=== PATIENT | female | born 1995 | race American Indian/Alaskan Native ===

== ENCOUNTER 2017-07-17 21:04 | Emergency (ER) | payer OTHER ==
[2017-07-17 22:18] VITALS: TEMP 97.5
--- NOTE | 2017-07-17 22:25 | ED PDOC ---
Arrival/HPI - General Historian: Patient - History of Present Illness Time/Duration: Other (since this morning) Quality: Aching Context: Home - General Time Seen by Provider: 07/17/17 22:21 - History of Present Illness Narrative History of Present Illness (Text): 07/17/17 22:21 This 21 yo female who denies pmh, presents to this ED c/o left sided headaches since this morning. Patient denies fever, sob, cp, abdominal pain, urinary symptoms, vaginal discharge, recent travel, sick contact, or abnormal gait. ( Cynthia Greenberg) Past Medical History - Provider Review Nursing Documentation Reviewed: Yes Family/Social History - Physician Review Nursing Documentation Reviewed: Yes Family/Social History: Other (non-contributory) Allergies/Home Meds Allergies/Adverse Reactions: Allergies No Known Allergies Allergy (Verified 07/17/17 22:40) Review of Systems - Review of Systems Constitutional: Normal. absent: Fatigue, Weight Change, Fevers Eyes: Normal ENT: Sore Throat, Other (left ear pain) Respiratory: Normal. absent: SOB, Cough Cardiovascular: Normal Gastrointestinal: Normal. absent: Abdominal Pain, Nausea, Vomiting Genitourinary Female: Normal. absent: Dysuria, Frequency, Hematuria, Vaginal Bleeding, Vaginal Discharge Musculoskeletal: Normal. absent: Arthralgias, Back Pain, Neck Pain Skin: Normal. absent: Rash Neurological: Normal, Headache Endocrine: Normal Hemo/Lymphatic: Normal Psychiatric: Normal Physical Exam Temperature: Afebrile Blood Pressure: Normal Pulse: Regular Respiratory Rate: Normal Appearance: Positive for: Well-Appearing, Non-Toxic, Comfortable Pain Distress: None Mental Status: Positive for: Alert and Oriented X 3 - Systems Exam Head: Present: Atraumatic, Normocephalic Pupils: Present: PERRL Extroacular Muscles: Present: EOMI Conjunctiva: Present: Normal Ears: Present: Normal, NORMAL TM, Normal Canal. No: Erythema, TM Bulging, Fluid , TM Perf Mouth: Present: Moist Mucous Membranes, Normal Lips, Normal Tounge, Normal Teeth. No: Drooling Pharnyx: Present: Normal. No: ERYTHEMA, EXUDATE, TONSILS ENLARGED Nose (External): Present: Atraumatic Nose (Internal): Present: Normal Inspection Neck: Present: Normal Range of Motion Respiratory/Chest: Present: Clear to Auscultation, Good Air Exchange. No: Respiratory Distress, Accessory Muscle Use Cardiovascular: Present: Regular Rate and Rhythm, Normal S1, S2. No: Murmurs Abdomen: Present: Normal Bowel Sounds. No: Tenderness, Distention, Peritoneal Signs Back: Present: Normal Inspection. No: CVA Tenderness, Midline Tenderness, Paraspinal Tenderness, Pain with Leg Raise Upper Extremity: Present: Normal Inspection, Normal ROM, NORMAL PULSES, Neurovascularly Intact, Capillary Refill < 2s. No: Cyanosis, Edema Lower Extremity: Present: Normal Inspection, NORMAL PULSES, Normal ROM, Neurovascularly Intact, Capillary Refill < 2 s. No: Edema, CALF TENDERNESS, Temperature Abnormalties Neurological: Present: GCS=15, CN II-XII Intact, Speech Normal, Motor Func Grossly Intact, Normal Sensory Function, Normal Cerebellar Funct, Gait Normal Skin: Present: Warm, Dry, Normal Color. No: Rashes Psychiatric: Present: Alert, Oriented x 3, Normal Insight, Normal Concentration Medical Decision Making Re-evaluation Time: 00:19 Reassessment Condition: Re-examined, Improved - Lab Interpretations I have reviewed the lab results: Yes Interpretation: Abnormal lab values (acute cystitis) ED Course and Treatment: 07/18/17 00:19 Re-evaluation. Patient feels better. Discussed results and plan with patient who expresses understanding. All questions answered and there is agreement with the plan to discharge home with instructions. Patient stable for discharge. Return if symptoms persist or worsen. Patient stated headache has improved. I reviewed UA result with patient which demonstrate subtle UTI. Patient agrees with plan to start ABX and to f/u pmd in 1-2 days. She understood urine culture will be available to review in 3-5 days. She will f/u this test with her pmd. Patient has a normal gait. normal speech. Patient appears well on her normal state of life (Greenberg,Nahim P) - Lab Interpretations Lab Results: Lab Results 07/17/17 22:50: Urine Color Yellow, Urine Appearance Sl cloudy, Urine pH 6.5, Ur Specific [place] 1.025, Urine Protein 30 H, Urine Glucose (UA) Negative, Urine Ketones Negative, Urine Blood Negative, Urine Nitrate Negative, Urine Bilirubin Negative, Urine Urobilinogen 1.0 H, Ur Leukocyte Esterase Moderate H, Urine RBC 0 - 2, Urine WBC 5 - 10, Ur Epithelial Cells 0 - 2, Urine Bacteria Occ , Urine HCG, Qual Negative - Medication Orders Current Medication Orders: Discontinued Medications Cephalexin Monohydrate (Keflex) 500 mg PO STAT STA PRN Reason: Protocol Stop: 07/18/17 00:17 Last Admin: 07/18/17 01:05 Dose: 500 mg Diphenhydramine HCl (Benadryl) 50 mg IVP STAT STA Stop: 07/17/17 22:42 Last Admin: 07/17/17 22:54 Dose: 50 mg Sodium Chloride (Sodium Chloride 0.9%) 1,000 mls @ 999 mls/hr IV .Q1H1M STA Stop: 07/17/17 23:40 Last Admin: 07/17/17 22:54 Dose: 999 mls/hr Ketorolac Tromethamine (Toradol) 30 mg IVP STAT STA Stop: 07/17/17 22:42 Last Admin: 07/17/17 22:54 Dose: 30 mg Metoclopramide HCl (Reglan) 10 mg IVP STAT STA Stop: 07/17/17 22:41 Last Admin: 07/17/17 22:54 Dose: 10 mg Disposition/Present on Arrival - Present on Arrival Any Indicators Present on Arrival: No History of DVT/PE: No History of Uncontrolled Diabetes: No Urinary Catheter: No History of Decub. Ulcer: No - Disposition Have Diagnosis and Disposition been Completed?: Yes Disposition Time: 00:22 Patient Plan: Discharge - Disposition Diagnosis: Headache, Acute cystitis Disposition: HOME/ ROUTINE Condition: GOOD Discharge Instructions (ExitCare): Acute Headache (ED) Additional Instructions: Call private doctor for follow up visit in 1-2 days. Take medication as instructed for headache as needed with food. Review urine culture report with your doctor in 3-5 days. return to emergency if symptoms worsen. Drink enough fluids, and rest. Prescriptions: Cephalexin [cephalexin] 500 mg PO BID #14 cap Metoclopramide HCl [Reglan] 10 mg PO BID PRN #6 tablet PRN Reason: Headache Naproxen 500 mg PO BID PRN #10 tab PRN Reason: Headache Referrals: Vickie Jerome MD [Primary Care Provider] - Follow up with primary Forms: WORK NOTE
[2017-07-17] MEDS ORDERED: Sodium Chloride 0.9% 1,000 ML IV STA (22:40)
[2017-07-17] MEDS ORDERED: DiphenhydrAMINE 50 mg/ml Inj IVP STA (22:41)
[2017-07-17 23:33] LABS: PH,URINE 6.5 (4.7-8.0); URINE BILIRUBIN NEGATIVE (NEGATIVE); URINE BLOOD NEGATIVE (NEGATIVE); URINE GLUCOSE (UA) NEGATIVE (NEGATIVE); URINE KETONE NEGATIVE (NEGATIVE); URINE LEUKOCYTE ESTERASE MODERATE Leu/uL (NEGATIVE); URINE PROTEIN 30 mg/dL (<30 mg/dL)
[2017-07-17 23:35] LABS: URINE COLOR YELLOW (YELLOW)
[2017-07-17 23:36] LABS: URINE APPEARANCE SL CLOUDY (CLEAR)
[2017-07-17 23:50] LABS: URINE EPITHELIAL CELLS 0 - 2 /hpf (0-5); URINE RBC 0 - 2 /hpf (0-2)
[2017-07-17 23:51] LABS: URINE BACTERIA OCC (NEG)
[2017-07-18 01:06] VITALS: BP 119/69; PULSE 69; RESP 17; O2SAT 100
== END 2017-07-18 01:07 | disposition home or self-care (01) ==
LOC: ED 21:04
DX: N30.00 Acute cystitis without hematuria (principal); R51 Headache
CPT/HCPCS: 81001; 84703; 96374; 96375; 99285; J1200; J1885; J2765; J7040

== ENCOUNTER 2017-08-10 23:40 | Emergency (ER) | payer OTHER ==
[2017-08-10 23:56] VITALS: BP 116/65; PULSE 69; RESP 18; TEMP 98.7
--- NOTE | 2017-08-11 00:41 | ED PDOC ---
Arrival/HPI <Chas Chua - Last Filed: 08/11/17 00:57> - General Historian: Patient - History of Present Illness Time/Duration: Other (see hpi) Quality: Aching Context: Home <Cynthia Greenberg - Last Filed: 08/11/17 01:16> - General Chief Complaint: Trauma Time Seen by Provider: 08/11/17 00:37 - History of Present Illness Narrative History of Present Illness (Text): 08/11/17 00:38 This 22 yo female who denies pmh, presents to this ED c/o left 5th finger pain x 9 hours ago. patient stated she became angry, punching dashboard of her car , causing finger pain. patient is left hand dominant. Denies other complains or pain. Fingers have FROM. (Cynthia Greenberg) Past Medical History - Provider Review Nursing Documentation Reviewed: Yes - Infectious Disease Hx of Infectious Diseases: None - Psychiatric Hx Substance Use: Yes (Marijuana) - Anesthesia Hx Anesthesia: No <Cynthia Greenberg - Last Filed: 08/11/17 01:16> Family/Social History - Physician Review Nursing Documentation Reviewed: Yes Family/Social History: Other (non-contributory) Smoking Status: Light Smoker < 10 Cigarettes Daily Hx Alcohol Use: Yes Hx Substance Use: Yes (Marijuana) <Cynthia Greenberg - Last Filed: 08/11/17 01:16> Allergies/Home Meds <Chas Chua - Last Filed: 08/11/17 00:57> <Cynthia Greenberg - Last Filed: 08/11/17 01:16> Allergies/Adverse Reactions: Allergies No Known Allergies Allergy (Verified 07/17/17 22:40) Review of Systems - Review of Systems Constitutional: Normal. absent: Fatigue, Weight Change, Fevers Eyes: Normal ENT: Normal Respiratory: Normal. absent: SOB, Cough Cardiovascular: Normal. absent: Chest Pain Gastrointestinal: Normal. absent: Abdominal Pain, Nausea, Vomiting Genitourinary Female: Normal Musculoskeletal: Other (see hpi) Skin: Normal Neurological: Normal Endocrine: Normal Hemo/Lymphatic: Normal Psychiatric: Normal <Cynthia Greenberg - Last Filed: 08/11/17 01:16> Physical Exam Temperature: Afebrile Blood Pressure: Normal Pulse: Regular Respiratory Rate: Normal Appearance: Positive for: Well-Appearing, Non-Toxic, Comfortable Pain Distress: None Mental Status: Positive for: Alert and Oriented X 3 - Systems Exam Head: Present: Atraumatic, Normocephalic Pupils: Present: PERRL Extroacular Muscles: Present: EOMI Conjunctiva: Present: Normal Mouth: Present: Moist Mucous Membranes Neck: Present: Normal Range of Motion Respiratory/Chest: Present: Clear to Auscultation, Good Air Exchange. No: Respiratory Distress, Accessory Muscle Use, Wheezes Cardiovascular: Present: Regular Rate and Rhythm, Normal S1, S2. No: Murmurs Upper Extremity: Present: Normal Inspection, Normal ROM, NORMAL PULSES, Tenderness (Mild tenderness near 5th MPJ, no erythema, no deformity), Neurovascularly Intact, Capillary Refill < 2s. No: Cyanosis, Edema Lower Extremity: Present: Normal Inspection, NORMAL PULSES, Normal ROM, Neurovascularly Intact, Capillary Refill < 2 s. No: Edema, CALF TENDERNESS Neurological: Present: GCS=15, CN II-XII Intact, Speech Normal, Motor Func Grossly Intact, Normal Sensory Function, Normal Cerebellar Funct, Gait Normal, Memory Normal Skin: Present: Warm, Dry, Normal Color. No: Rashes Psychiatric: Present: Alert, Oriented x 3 <Cynthia Greenberg - Last Filed: 08/11/17 01:16> Vital Signs Temp Pulse Resp BP Pulse Ox 08/10/17 23:54 98.7 F 69 18 116/65 100 Medical Decision Making <Chas Chua - Last Filed: 08/11/17 00:57> Re-evaluation Time: 01:13 Reassessment Condition: Re-examined, Improved <Cynthia Greenberg - Last Filed: 08/11/17 01:16> ED Course and Treatment: 08/11/17 01:13 Re-evaluation. Patient feels better. Discussed results and plan with patient who expresses understanding. All questions answered and there is agreement with the plan to discharge home with instructions. Patient stable for discharge. Return if symptoms persist or worsen I told patient official report from x-rays will be available tomorrow, and she will get a phone call if x-rays report is different from today's (Cynthia Greenberg) - RAD Interpretation Narrative RAD Interpretations (Text): 08/11/17 01:13 Finger x-rays: no fx or sublux. (Cynthia Greenberg) Radiology Orders: 08/11/17 00:37 HAND LEFT 5TH DIGIT (FINGER) [RAD] Stat - Medication Orders Current Medication Orders: Discontinued Medications Acetaminophen (Tylenol 325mg Tab) 650 mg PO STAT STA Stop: 08/11/17 00:38 Last Admin: 08/11/17 01:06 Dose: 650 mg MAR Pain/Vitals Document 08/11/17 01:06 [email or web address] (Rec: 08/11/17 01:07 [email or web address] [facility] [id number] Pain Reassessment Is This A Pain ReAssessment? No Sleep Is patient sleeping during reassessment? 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 <Chas Chua - Last Filed: 08/11/17 00:57> Disposition/Present on Arrival <Chas Chua - Last Filed: 08/11/17 00:57> - Present on Arrival Any Indicators Present on Arrival: No History of DVT/PE: No History of Uncontrolled Diabetes: No Urinary Catheter: No History of Decub. Ulcer: No History Surgical Site Infection Following: None - Disposition Have Diagnosis and Disposition been Completed?: Yes Disposition Time: 01:14 Patient Plan: Discharge <Cynthia Greenberg - Last Filed: 08/11/17 01:16> - Disposition Diagnosis: Finger contusion Disposition: HOME/ ROUTINE Condition: GOOD Discharge Instructions (ExitCare): Rose Mary Elizondo (ED) Additional Instructions: Call private doctor for follow up visit in 1-2 days. You may want to get a finger splint from your local pharmacy and wear it for a week. Take medication as instructed. Return to emergency if symptoms worsen. Prescriptions: Ibuprofen [Motrin] 600 mg PO Q8 PRN #20 tab PRN Reason: Pain, Severe (8-10) Referrals: [facility] [Outside] - Follow up with primary [facility] [Outside] - Follow up with primary Forms: [employer] (Niuean)
[2017-08-11 01:20] VITALS: O2SAT 99
--- NOTE | 2017-08-11 11:50 | RAD ---
PROCEDURE: Left small finger radiographs. HISTORY: pain COMPARISON: None. TECHNIQUE: AP radiograph of the left hand, as well as spot oblique and lateral images of left small finger were obtained. FINDINGS: LEFT SMALL FINGER: Left small finger normal, without fracture of focal lesion. Remainder of the left hand (as seen on the AP view) is grossly unremarkable. JOINTS: Normal. SOFT TISSUES: Normal. OTHER FINDINGS: None. IMPRESSION: Normal left small finger radiographs.
== END 2017-08-11 01:20 | disposition home or self-care (01) ==
LOC: ED 23:40
DX: S60.052A Contusion of left little finger without damage to nail, initial encounter (principal); W22.8XXA Striking against or struck by other objects, initial encounter; Y92.810 Car as the place of occurrence of the external cause

== ENCOUNTER 2018-03-20 13:38 | Emergency (ER) | payer OTHER ==
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
[2018-03-20 15:15] VITALS: RESP 18
[2018-03-20 15:28] VITALS: BP 120/60; PULSE 78; TEMP 98; O2SAT 99
== END 2018-03-20 15:25 | disposition home or self-care (01) ==
LOC: ED 13:38
DX: M25.511 Pain in right shoulder (principal); V43.62XA Car passenger injured in collision with other type car in traffic accident, initial encounter; Y92.410 Unspecified street and highway as the place of occurrence of the external cause

== ENCOUNTER 2018-08-31 16:06 | Emergency (ER) | payer OTHER ==
--- NOTE | 2018-08-31 16:29 | ED PDOC ---
Arrival/HPI <Julio Dean - Last Filed: 08/31/18 16:58> - General Historian: Patient - History of Present Illness Narrative History of Present Illness (Text): 08/31/18 16:26 23 y/o female with no significant PMH presents to ED c/o gradual onset of right thoracic back pain x 2 days. Paraspinal muscles are tender and pain is achey and worse with movement without radiation. 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 She has not taken any medication for pain. Denies fall, fever, chills, cough, SOB, chest pain, palpitations, syncope, calf swelling, calf pain, rash, abdominal pain, N/V, diarrhea. <Aleshia Cowart - Last Filed: 08/31/18 17:18> - General Chief Complaint: Back Pain Time Seen by Provider: 08/31/18 16:25 Past Medical History - Provider Review Nursing Documentation Reviewed: Yes - Infectious Disease Hx of Infectious Diseases: None - Psychiatric Hx Substance Use: Yes (Marijuana) - Anesthesia Hx Anesthesia: No <Aleshia Cowart - Last Filed: 08/31/18 17:18> Family/Social History - Physician Review Nursing Documentation Reviewed: Yes Family/Social History: Unknown Family HX Smoking Status: Light Smoker < 10 Cigarettes Daily Hx Alcohol Use: Yes Frequency of alcohol use: Socially Hx Substance Use: Yes (Marijuana) <Aleshia Cowart - Last Filed: 08/31/18 17:18> Allergies/Home Meds <Julio Dean - Last Filed: 08/31/18 16:58> <Aleshia Cowart - Last Filed: 08/31/18 17:18> Allergies/Adverse Reactions: Allergies No Known Allergies Allergy (Verified 08/31/18 16:16) Review of Systems - Physician Review All systems were reviewed & negative as marked: Yes - Review of Systems Constitutional: Normal. absent: Fevers Eyes: Normal ENT: Normal Respiratory: Normal. absent: SOB, Cough, Sputum, Wheezing Cardiovascular: Normal. absent: Chest Pain, Palpitations, Calf Pain, Syncope Gastrointestinal: Normal. absent: Abdominal Pain, Stool Changes, Constipation, Diarrhea, Nausea, Vomiting, Anorexia Genitourinary Female: Normal Musculoskeletal: Back Pain (right thoracic). absent: Neck Pain Skin: Normal. absent: Rash, Pruritis, Skin Lesions, Cellulitis Neurological: Normal. absent: Headache, Dizziness, Gait Changes Hemo/Lymphatic: Normal. absent: Adenopathy <Aleshia Cowart - Last Filed: 08/31/18 17:18> Physical Exam Vital Signs Temp Pulse Resp BP Pulse Ox 08/31/18 16:14 98.5 F 66 19 126/91 H 100 <TolericoJulio - Last Filed: 08/31/18 16:58> Vital Signs Reviewed: Yes Vital Signs Temp Pulse Resp BP Pulse Ox 08/31/18 16:14 98.5 F 66 19 126/91 H 100 Temperature: Afebrile Blood Pressure: Normal Pulse: Regular Respiratory Rate: Normal Appearance: Positive for: Well-Appearing, Non-Toxic, Comfortable Pain Distress: None Mental Status: Positive for: Alert and Oriented X 3 - Systems Exam Head: Present: Atraumatic, Normocephalic Pupils: Present: PERRL Extroacular Muscles: Present: EOMI Conjunctiva: Present: Normal Mouth: Present: Moist Mucous Membranes Neck: Present: Normal Range of Motion Respiratory/Chest: Present: Clear to Auscultation, Good Air Exchange. No: Respiratory Distress, Accessory Muscle Use Cardiovascular: Present: Regular Rate and Rhythm, Normal S1, S2. No: Murmurs Abdomen: No: Tenderness, Distention, Peritoneal Signs Back: Present: Normal Inspection, Paraspinal Tenderness (right thoracic), Other (decreased ROM secondary to pain. right thoracic paraspinal muscle spasm.). No: Midline Tenderness Upper Extremity: Present: Normal Inspection. No: Cyanosis, Edema Lower Extremity: Present: Normal Inspection. No: Edema Neurological: Present: GCS=15, CN II-XII Intact, Speech Normal Skin: Present: Warm, Dry, Normal Color. No: Rashes Psychiatric: Present: Alert, Oriented x 3, Normal Insight, Normal Concentration <Aleshia Cowart - Last Filed: 08/31/18 17:18> Medical Decision Making - Medication Orders Current Medication Orders: Discontinued Medications Cyclobenzaprine HCl (Flexeril) 10 mg PO STAT STA Stop: 08/31/18 16:26 Last Admin: 08/31/18 16:39 Dose: 10 mg Ketorolac Tromethamine (Toradol) 60 mg IM STAT STA Stop: 08/31/18 16:27 Last Admin: 08/31/18 16:39 Dose: 60 mg MAR Pain Assessment Document 08/31/18 16:39 GMI (Rec: 08/31/18 16:45 GMI [id number]) Pain Reassessment Is this a pain reassessment? Yes Sleep Is patient sleeping during reassessment? No Presence of Pain Presence of Pain Yes Pain Scale Used Protocol: PSCALES Pain Scale Used Numeric Location Left, Right or Bilateral Right Pain Location Body Site Chest Description Description Constant Intensity of Pain at present 8 Pain Behavior Facial Grimacing Alleviating Factors/Management Medication Techniques Alleviating Factors Position Change IM Administration Charges Document 08/31/18 16:39 GMI (Rec: 08/31/18 16:45 GMI [id number]) Injection Site MAR Injection Site Right Gluteus Mukesh Charges for Administration # of IM Administrations 1 <Julio Dean - Last Filed: 08/31/18 16:58> ED Course and Treatment: 08/31/18 17:16 Initial Plan: --POC urine preg (negative) --Flexeril --Toradol --Reassess and disposition Impression: Muscle spasm Plan: --flexeril, ibuprofen for pain --stretches --followup PMD --return for new/worsening symptoms - Medication Orders Current Medication Orders: Cyclobenzaprine HCl (Flexeril) 10 mg PO STAT STA Stop: 08/31/18 16:26 <Aleshia Cowart - Last Filed: 08/31/18 17:18> - PA / ICER HAND / Resident Statement MD/DO has reviewed & agrees with the documentation as recorded. <Julio Dean - Last Filed: 08/31/18 16:58> Disposition/Present on Arrival <Julio Dean - Last Filed: 08/31/18 16:58> - Present on Arrival Any Indicators Present on Arrival: No History of DVT/PE: No History of Uncontrolled Diabetes: No Urinary Catheter: No History of Decub. Ulcer: No History Surgical Site Infection Following: None - Disposition Have Diagnosis and Disposition been Completed?: Yes Disposition Time: 17:00 Patient Plan: Discharge <Aleshia Cowart - Last Filed: 08/31/18 17:18> - Disposition Diagnosis: Muscle spasm Disposition: HOME/ ROUTINE Patient Problems: Current Active Problems Problem Status Onset Muscle spasm Acute Condition: IMPROVED Discharge Instructions (ExitCare): Muscle Spasms (DC) Additional Instructions: Take flexeril every 8 hours as needed for pain Take ibuprofen every 6 hours with food as needed for pain Increase fluids Followup with primary doctor within 2 days Return to ER for new or worsening symptoms Prescriptions: Cyclobenzaprine [Cyclobenzaprine HCl] 10 mg PO Q8H PRN #21 tab PRN Reason: spasm Ibuprofen [Motrin Tab] 600 mg PO Q6H PRN #30 tab PRN Reason: Pain, Moderate (4-7) Referrals: Vickie Jerome MD [Primary Care Provider] - Follow up with primary Forms: [facility] (Vietnamese), WORK NOTE
[2018-08-31 17:31] VITALS: BP 119/72; PULSE 72; RESP 20; TEMP 98; O2SAT 99
== END 2018-08-31 17:30 | disposition home or self-care (01) ==
LOC: ED 16:06
DX: M62.838 Other muscle spasm (principal); F17.210 Nicotine dependence, cigarettes, uncomplicated
CPT/HCPCS: 96372; 99283; J1885

== ENCOUNTER 2019-01-05 08:38 | Emergency (ER) | payer OTHER ==
[2019-01-05 08:51] VITALS: RESP 18; TEMP 98
[2019-01-05] MEDS ORDERED: Sodium Chloride 0.9% 500 ML IV STA (08:57)
--- NOTE | 2019-01-05 09:22 | ED PDOC ---
Arrival/HPI - General Chief Complaint: Female Genitourinary Time Seen by Provider: 01/05/19 08:54 Historian: Patient - History of Present Illness Narrative History of Present Illness (Text): 01/05/19 08:59 23 year old female, at 5 weeks gestation by date, with no significant past medical history, presents to the emergency department complaining of vaginal spotting that began last night. Patient also is complaining of cramping which has resolved. She reports the bleeding was heavier this morning which promoted her visit. Patient has not seen an OB for this . Patient is currently pain free. Patient denies any fever, chills, chest pain, shortness of breath, nausea, vomiting, diarrhea, urinary symptoms, back pain, neck pain, headache, dizziness, or any other complaints. Time/Duration: Other (last night) Symptom Onset: Gradual Symptom Course: Unchanged Activities at Onset: Light Context: Home Past Medical History - Provider Review Nursing Documentation Reviewed: Yes - Infectious Disease Hx of Infectious Diseases: None - Reproductive Menopause: No Currently : Yes - Genitourinary/Gynecological Hx Sexually Transmitted Diseases: Yes - Psychiatric Hx Substance Use: Yes (Marijuana) - Anesthesia Hx Anesthesia: No Family/Social History - Physician Review Nursing Documentation Reviewed: Yes Family/Social History: No Known Family HX Smoking Status: Light Smoker < 10 Cigarettes Daily Hx Alcohol Use: Yes Hx Substance Use: Yes (Marijuana) Allergies/Home Meds Allergies/Adverse Reactions: Allergies No Known Allergies Allergy (Verified 08/31/18 16:16) Home Medications: Home Meds Medication Instructions Recorded Confirmed RX: No Known Home Med 01/05/19 01/05/19 Review of Systems - Physician Review All systems were reviewed & negative as marked: Yes - Review of Systems Constitutional: absent: Fevers, Other (chill) Respiratory: absent: SOB Cardiovascular: absent: Chest Pain Gastrointestinal: Abdominal Pain (abdominal cramping (resolved)). absent: Diarr hea, Nausea, Vomiting Genitourinary Female: Vaginal Bleeding. absent: Dysuria, Frequency, Hematuria Musculoskeletal: absent: Back Pain, Neck Pain Neurological: absent: Headache, Dizziness Physical Exam Vital Signs Reviewed: Yes Vital Signs Temp Pulse Resp BP Pulse Ox 01/05/19 08:47 98 F 76 18 125/87 100 Temperature: Afebrile Blood Pressure: Normal Pulse: Regular Respiratory Rate: Normal Appearance: Positive for: Well-Appearing, Non-Toxic, Comfortable Pain Distress: None Mental Status: Positive for: Alert and Oriented X 3 - Systems Exam Head: Present: Atraumatic, Normocephalic Pupils: Present: PERRL Extroacular Muscles: Present: EOMI Conjunctiva: Present: Normal Mouth: Present: Moist Mucous Membranes Neck: Present: Normal Range of Motion Respiratory/Chest: Present: Clear to Auscultation, Good Air Exchange. No: Respiratory Distress, Accessory Muscle Use Cardiovascular: Present: Regular Rate and Rhythm, Normal S1, S2. No: Murmurs Abdomen: No: Tenderness, Distention, Peritoneal Signs Back: Present: Normal Inspection Upper Extremity: Present: Normal Inspection. No: Cyanosis, Edema Lower Extremity: Present: Normal Inspection. No: Edema Neurological: Present: GCS=15, CN II-XII Intact, Speech Normal Skin: Present: Warm, Dry, Normal Color. No: Rashes Psychiatric: Present: Alert, Oriented x 3, Normal Insight, Normal Concentration Medical Decision Making ED Course and Treatment: 01/05/19 08:59 Impression: 23 year old female presents complaining of worsening vaginal bleeding that began last night. Patient is 5 weeks gestation by date. ro ectopic vs miscarriage vs ab Plan: -- Labs -- IV fluids -- HCG, Qualitative Urine -- Transvaginal US -- Reassess and disposition Progress Notes: PROCEDURE: OB Pelvic Ultrasound Dictator : Alisa Keita MD Report Date : 01/05/2019 11:26:37 IMPRESSION: No evidence of intrauterine gestational sac. 01/05/19 15:28 bebeto 30 no iup ?early preg vs miscarriage vs possible ectopic abd sof tno ttp pain free. discussed with obgyn on darron agrevenita with close outpt fu and strict re turn precautions - Lab Interpretations I have reviewed the lab results: Yes - RAD Interpretation Radiology Orders: 01/05/19 08:57 TRANSVAGINAL [US] Stat Production Line Manager: Radiologist - Medication Orders Current Medication Orders: Sodium Chloride (Sodium Chloride 0.9%) 500 mls @ 1,000 mls/hr IV .Q30M STA Stop: 01/05/19 09:26 - Scribe Statement The provider has reviewed the documentation as recorded by the Diann Raya Provider Scribe Attestation: All medical record entries made by the Scribe were at my direction and personally dictated by me. I have reviewed the chart and agree that the record accurately reflects my personal performance of the history, physical exam, medical decision making, and the department course for this patient. I have also personally directed, reviewed, and agree with the discharge instructions and disposition. Disposition/Present on Arrival - Present on Arrival Any Indicators Present on Arrival: No History of DVT/PE: No History of Uncontrolled Diabetes: No Urinary Catheter: No History of Decub. Ulcer: No History Surgical Site Infection Following: None - Disposition Have Diagnosis and Disposition been Completed?: Yes Diagnosis: Threatened miscarriage Disposition: HOME/ ROUTINE Disposition Time: 13:00 Condition: STABLE Discharge Instructions (ExitCare): Threatened Miscarriage (DC) Additional Instructions: follow up wiht obgyn in next 48 hours. you will need repeat us and blood work. return to any er with worsening. Referrals: Vickie Jerome MD [Primary Care Provider] - Follow up with primary Nancy Castañeda MD [Staff Provider] - Follow up with primary Forms: [facility] (Romansh), WORK NOTE
[2019-01-05 09:58] LABS: BASO # 0.02 K/mm3 (0.0-2.0); BASO % 0.3 % (0.0-3.0); EOS % 0.7 % (1.5-5.0); HEMOGLOBIN 12.7 g/dL (12.0-16.0); LYMPH # 2.1 (1.2-3.4); LYMPH % 35.1 % (22.0-35.0); MEAN CORPUSCULAR HEMOGLOBIN 30.9 pg (25.0-35.0); MEAN PLATELET VOLUME 9.2 fl (7.0-11.0); MONO # 0.6 (0.1-0.6); MONO % 9.4 % (1.0-6.0); RBC 4.11 10^6/uL (3.5-6.1); RED CELL DISTRIBUTION WIDTH 11.9 % (11.5-14.5)
[2019-01-05 10:34] LABS: INR 1.1; PARTIAL THROMBOPLASTIN TIME 31.1 Seconds (26.9-38.3); PROTHROMBIN TIME 12.4 SECONDS (9.4-12.5)
[2019-01-05 10:39] LABS: ALB/GLOB RATIO 1.3 (1.1-1.8); ALBUMIN 4.4 g/dL (3.0-4.8); ALT/SGPT < 6 U/L (7-56); AST/SGOT 18 U/L (14-36); BLOOD UREA NITROGEN 11 mg/dL (7-21); CALCIUM 9.4 mg/dL (8.4-10.5); GFR NON-AFRICAN AMERICAN > 60
--- NOTE | 2019-01-05 11:29 | US ---
Date of service: 01/05/2019 PROCEDURE: OB Pelvic Ultrasound HISTORY: and vb COMPARISON: None available. FINDINGS: UTERUS: There is no intrauterine gestational sac. The central endometrial echo complex is normal in appearance and measures 5.1 mm. Uterus measures 6.4 x 4.1 x 1.6 cm. Anteverted and normal in size, normal myometrial echotexture CERVIX: Long and closed. There is a nabothian cyst in the cervix. RIGHT OVARY: Measures 2.6 x 1.4 x 1.4 cm. No mass. Normal flow. LEFT OVARY: Measures 2.8 x 1.4 x 1.6 cm. No mass. Normal flow. FREE FLUID: There is small amount of free fluid in the pelvis. OTHER FINDINGS: None. IMPRESSION: No evidence of intrauterine gestational sac.
[2019-01-05 11:39] VITALS: PULSE 87; O2SAT 98
[2019-01-05 13:40] VITALS: BP 125/72
== END 2019-01-05 13:41 | disposition home or self-care (01) ==
LOC: ED 08:38
DX: O20.0 Threatened abortion (principal); Z3A.01 Less than 8 weeks gestation of pregnancy
CPT/HCPCS: 76817; 80053; 84702; 85025; 85610; 85730; 86850; 86900; 99283; J7040